=== PATIENT | female | born 1970 | race Caucasian/White ===

== ENCOUNTER 2021-03-01 09:42 | Emergency (ER) | payer OTHER ==
[2021-03-01 09:48] VITALS: BP 117/82; PULSE 102; TEMP 98; BMI 24.9
[2021-03-01] MEDS ORDERED: IBUPROFEN 600 MG TABLET (FP) PO ONE ×3 (10:07→10:23)
== END 2021-03-01 10:33 | disposition home or self-care (01) ==
LOC: JERFT 09:42 → JER 09:42 → JERFT 10:33
DX: S93.411A Sprain of calcaneofibular ligament of right ankle, initial encounter (principal); S93.691A Other sprain of right foot, initial encounter; Y93.02 Activity, running; Y92.9 Unspecified place or not applicable
CPT/HCPCS: 73610-TC-RT-FY; 73630-TC-RT-FY; 99284-25

== ENCOUNTER → 2022-03-03 | Day surgery (SDC) | payer OTHER | END | disposition home or self-care (01) | LOC: JRADUS-SUR 07:52 | PROVIDERS: ATTEND Internal Medicine | PROC: 0H9U3ZX Drainage of Left Breast, Percutaneous Approach, Diagnostic (ICD-10-PCS; principal; 2022-03-03) | DX: D24.2 Benign neoplasm of left breast (principal); N60.22 Fibroadenosis of left breast | CPT/HCPCS: 19083; 77065-TC; 87899; 88305-TC; 88342-TC; A4648 ==

== ENCOUNTER 2023-03-11 06:51 | Day surgery (SDC) | payer OTHER ==
[2023-03-07 17:28] VITALS: BMI 26.0
[2023-03-11] MEDS ORDERED: BUPIVACAINE HCL/PF 0.25% (2.5MG/ML) 10 ML VIAL ONE (07:42)
[2023-03-11] MEDS ORDERED: MIDAZOLAM HCL 2 MG/2 ML SINGLE DOSE VIAL ONE (08:07)
[2023-03-11] MEDS ORDERED: PROPOFOL 20 ML ONE (08:07)
[2023-03-11] MEDS ORDERED: KETOROLAC TROMETHAMINE 30 MG/1 ML VIAL ONE (08:08)
[2023-03-11] MEDS ORDERED: ONDANSETRON 4 MG/2 ML VIAL ONE ×2 (08:08→10:44)
[2023-03-11] MEDS ORDERED: DEXAMETHASONE SOD PHOSPHATE 4 MG/1 ML VIAL ONE (08:08)
[2023-03-11] MEDS ORDERED: LIDOCAINE HCL/PF 2% SDV 5ML VIAL ONE (08:08)
[2023-03-11] MEDS ORDERED: SEVOFLURANE 250 ML BTL ONE (08:09)
[2023-03-11] MEDS ORDERED: PROMETHAZINE HCL 25 MG/1 ML VIAL IVPB PRN (08:22)
[2023-03-11] MEDS ORDERED: ONDANSETRON 4 MG/2 ML VIAL IVPUSH PRN (08:22)
[2023-03-11] MEDS ORDERED: oxyCODONE HCL 5 MG TABLET PO PRN ×2 (08:22)
[2023-03-11] MEDS ORDERED: ACETAMINOPHEN 1000 MG/100 ML BAG IVPB ONE (08:23)
[2023-03-11] MEDS ORDERED: LACTATED RINGERS SOLUTION 1,000 ML IV SCH (08:30)
[2023-03-11] MEDS ORDERED: ceFAZolin SODIUM 1 GM VIAL ONE (09:19)
[2023-03-11] MEDS ORDERED: ACETAMINOPHEN INJECTION 100 ML IVPB ONE (10:35)
[2023-03-11] MEDS ORDERED: FENTANYL CITRATE/PF 50 MCG/ML VIAL ONE ×3 (10:35→11:02)
[2023-03-11] MEDS ORDERED: oxyCODONE HCL 5 MG TABLET ONE ×2 (11:39→12:03)
[2023-03-11] MEDS ORDERED: oxyCODONE HCL 5 MG TABLET PO ONE (12:05)
[2023-03-11 12:13] VITALS: RESP 16; TEMP 97.6
[2023-03-11 12:52] VITALS: BP 119/59; PULSE 87
== END 2023-03-11 13:30 | disposition home or self-care (01) ==
LOC: FASU 06:51
PROVIDERS: ATTEND Orthopaedic Surgery Sports Medicine
PROC: 0SBD4ZZ Excision of Left Knee Joint, Percutaneous Endoscopic Approach (ICD-10-PCS; 2023-03-11)
PROC: 0SBD4ZZ Excision of Left Knee Joint, Percutaneous Endoscopic Approach (ICD-10-PCS; 2023-03-11)
PROC: 0SQD4ZZ Repair Left Knee Joint, Percutaneous Endoscopic Approach (ICD-10-PCS; principal; 2023-03-11 10:20)
DX: S83.242A Other tear of medial meniscus, current injury, left knee, initial encounter (principal); S83.282A Other tear of lateral meniscus, current injury, left knee, initial encounter; M65.862 Other synovitis and tenosynovitis, left lower leg; M94.262 Chondromalacia, left knee; X58.XXXA Exposure to other specified factors, initial encounter; Y92.9 Unspecified place or not applicable; Y93.9 Activity, unspecified
CPT/HCPCS: 81025; 94760

== ENCOUNTER 2023-03-15 12:46 | Emergency (ER) | payer OTHER ==
[2023-03-15 12:59] VITALS: RESP 18; BMI 25.2
[2023-03-15] MEDS ORDERED: oxyCODONE HCL 5 MG TABLET PO ONE (13:24)
[2023-03-15] MEDS ORDERED: IBUPROFEN 400 MG TABLET (FP) PO ONE ×2 (13:36→13:42)
[2023-03-15] MEDS ORDERED: ACETAMINOPHEN 325 MG TABLET (FP) PO ONE (13:36)
[2023-03-15] MEDS ORDERED: oxyCODONE HCL 5 MG TABLET ONE (13:37)
[2023-03-15] MEDS ORDERED: ACETAMINOPHEN 325 MG TABLET (FP) ONE (13:42)
[2023-03-15] MEDS ORDERED: morphine CARPU-JECT 4 MG/1 ML DISP.SYRIN IVPUSH ONE (16:16)
[2023-03-15] MEDS ORDERED: morphine SULFATE 4 MG/ML VIAL ONE (16:26)
[2023-03-15 16:49] VITALS: BP 107/66; PULSE 85; TEMP 97.8
[2023-03-15 17:31] LABS: BASO % 0.9 % (0-2.0); EOS % 0.8 % (0-4.5); HEMOGLOBIN 12.5 GM/dL (10.7-15.3); LYMPH % 27.1 % (8-40); MCH 27.9 pg (25.7-33.7); MCHC 32.9 g/dl (32.0-36.0); MEAN CELL VOLUME 84.6 fl (80-96); NEUT % 65.2 % (42.8-82.8); PLATELET COUNT 245 10^3/uL (134-434); RDW 13.1 % (11.6-15.6)
[2023-03-15 18:31] LABS: POTASSIUM 4.1 mmol/L (3.5-5.1)
[2023-03-15 18:33] LABS: BLOOD UREA NITROGEN 10.3 mg/dL (7-18); CALCIUM 8.6 mg/dL (8.5-10.1)
[2023-03-15 18:34] LABS: ALBUMIN 3.6 g/dl (3.4-5.0)
[2023-03-15 18:36] LABS: CREATININE 0.6 mg/dL (0.55-1.3)
[2023-03-15 18:38] LABS: BILIRUBIN,TOTAL 0.3 mg/dL (0.2-1); TOT PROT 6.6 g/dl (6.4-8.2)
[2023-03-15 18:53] LABS: EPI CELLS 6 /uL (0-25.1); HYALINE CASTS 0 /uL (0-3.1); PH,URINE 5.5 (5.0-8.0); URINE APPEARANCE CLEAR; URINE BACTERIA 18 /uL (0-1359); URINE BILIRUBIN NEGATIVE (NEGATIVE); URINE COLOR YELLOW; URINE GLUCOSE (UA) NEGATIVE (NEGATIVE); URINE KETONE TRACE (NEGATIVE); URINE LEUK ESTERASE NEGATIVE (NEGATIVE); URINE NITRITE NEGATIVE (NEGATIVE); URINE PROTEIN NEGATIVE (NEGATIVE); URINE RBC 65 /uL (0-23.9); URINE UROBILINOGEN 0.2 mg/dL (0.2-1.0); URINE WBC 16 /uL (0-25.8)
== END 2023-03-15 18:58 | disposition home or self-care (01) ==
LOC: JER 12:46
PROC: 3E033GC Introduction of Other Therapeutic Substance into Peripheral Vein, Percutaneous Approach (ICD-10-PCS; principal; 2023-03-15)
DX: M25.562 Pain in left knee (principal); R20.2 Paresthesia of skin; R35.0 Frequency of micturition
CPT/HCPCS: 36415; 80053; 81003; 83605; 84703; 85025; 87086; 87186; 93926-TC; 93971-TC; 99284-25